=== PATIENT | male | born 1955 | race Caucasian/White ===

== ENCOUNTER 2016-04-14 13:13 | Emergency (ER) | payer OTHER ==
[2016-04-14] MEDS ORDERED: ceFAZolin 1,000 MG in DEXTROSE/WATER 1 50ML.BAG IVPB STA (13:19)
[2016-04-14 13:24] LABS: Glucose,Whole Blood 99 mg/dL (75-99)
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
[2016-04-14 13:47] VITALS: BP 153/117; PULSE 90; RESP 20; TEMP 97.4
[2016-04-14 13:53] LABS: Basophils % (A) 1 %; CH 32.1; CHCM 33.4; Eosinophils # (A) 0.1 k/uL (0-0.7); Eosinophils % (A) 2 %; HCT 44.2 % (39.0-53.0); HDW 2.38; HGB 14.4 gm/dL (13.0-17.5); Luc # (Auto) 0.15; Luc % (Auto) 3; Lymphocytes # (A) 1.3 k/uL (1.0-4.8); Lymphocytes % (A) 24 %; MCH 31.5 pg (25.0-35.0); MCHC 32.7 g/dL (31.0-37.0); MCV 96.4 fL (80.0-100.0); Monocytes # (A) 0.3 k/uL (0-1.0); Monocytes % (A) 6 %; Neutrophils # (A) 3.4 k/uL (1.3-7.7); Neutrophils % (A) 65 %; RBC 4.58 m/uL (4.30-5.90); RDW 12.5 % (11.5-15.5); WBC 5.3 k/uL (3.8-10.6); WBC (Perox) 5.29
[2016-04-14 13:56] LABS: ALT 54 U/L (21-72); AST 30 U/L (17-59); Alcohol <10 mg/dL; Alkaline Phosphatase 70 U/L (38-126); Amylase 39 U/L (30-110); Anion Gap 11 mmol/L; Blood Urea Nitrogen 12 mg/dL (9-20); Calcium 9.4 mg/dL (8.4-10.2); Carbon Dioxide 25 mmol/L (22-30); Chloride 106 mmol/L (98-107); Glucose 102 mg/dL (74-99); Non-African American GFR(MDRD) >60 (>60 ml/min/1.73 sqM); Potassium 4.3 mmol/L (3.5-5.1); Sodium 142 mmol/L (137-145); Total Bilirubin 0.5 mg/dL (0.2-1.3)
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
[2016-04-14 14:06] LABS: Creatine Kinase 164 U/L (55-170); Prothrombin Time 10.1 sec (9.0-12.0)
[2016-04-14 14:10] LABS: Partial Thromboplastin Time 20.7 sec (22.0-30.0)
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
[2016-04-14 14:19] LABS: Creatine Kinase MB 1.8 ng/mL (0.0-2.4); Troponin I <0.012 ng/mL (0.000-0.034)
[2016-04-14] MEDS: HYDROmorphone 1 MG/ML 1 ML SYRINGE IVP STA ×2 (14:50→15:01)
[2016-04-14] MEDS: MORPHINE SULFATE 4 MG/ML SYRINGE IVP STA ×2 (15:12→15:27)
[2016-04-14 15:17] LABS: Appearance,Urine Clear (Clear); Bilirubin,Urine Negative (Negative); Glucose,Urine (UA) Negative (Negative); Ketones,Urine Negative (Negative); Leukocyte Esterase,Urine Negative (Negative); Nitrite,Urine Negative (Negative); PH, Urine 7.5 (5.0-8.0); Protein,Urine Negative (Negative); Specific Gravity,Urine 1.011 (1.001-1.035); UA Billing (MACRO vs. MICRO) CHEM; Urobilinogen,Urine <2.0 mg/dL (<2.0)
[2016-04-14] MEDS ORDERED: LORazepam 2 MG/ML SYRINGE IV STA (15:27)
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
== END 2016-04-14 15:50 | disposition other institution (70) ==
LOC: EC 13:13
DX: S06.0X1A Concussion with loss of consciousness of 30 minutes or less, initial encounter (principal); W38.XXXA Explosion and rupture of other specified pressurized devices, initial encounter; Y93.H3 Activity, building and construction; Y99.0 Civilian activity done for income or pay; S02.2XXA Fracture of nasal bones, initial encounter for closed fracture; S02.411A LeFort I fracture, initial encounter for closed fracture; S02.412A LeFort II fracture, initial encounter for closed fracture; S01.21XA Laceration without foreign body of nose, initial encounter; S01.81XA Laceration without foreign body of other part of head, initial encounter; F17.200 Nicotine dependence, unspecified, uncomplicated; Z79.899 Other long term (current) drug therapy; Z79.82 Long term (current) use of aspirin; I10 Essential (primary) hypertension; F90.9 Attention-deficit hyperactivity disorder, unspecified type
CPT/HCPCS: 36415; 93005; 86900; 86901; 80053; 82150; 82550; 82553; 83690; 84484; 85025; 85610; 85730; 86850; 81003; 80306; 80320; 71010; 72125; 70486; 70450; 96365; 96375 ×3; 99291; J2060; J2270; J1170; J0690

== ENCOUNTER 2019-09-07 17:55 | Emergency (ER) | payer MEDICARE ==
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
--- NOTE | 2019-09-07 19:05 | XR ---
EXAMINATION TYPE: XR ribs RT w pa chest xray DATE OF EXAM: 09/07/2019 COMPARISON: 04/14/2016 HISTORY: Rib pain after a fall TECHNIQUE: 5 views FINDINGS: Heart and mediastinum are normal. Lungs are clear. There is no sign of pleural effusion or pneumothorax. I see no evidence of a rib fracture. Right shoulder appears intact. IMPRESSION: No active cardiopulmonary disease. No rib fracture seen. No adverse change compared to ol d exam.
--- NOTE | 2019-09-07 19:08 | XR ---
EXAMINATION TYPE: XR ankle complete LT DATE OF EXAM: 09/07/2019 COMPARISON: NONE HISTORY: Ankle pain TECHNIQUE: 3 views FINDINGS: Ankle mortise is anatomic. There is plantar calcaneal spurring. I see no fracture nor dislo cation. There are no erosions. Joint spaces are fairly normal. IMPRESSION: Mild calcaneal spurring. No fracture seen.
--- NOTE | 2019-09-07 19:08 | XR ---
EXAMINATION TYPE: XR elbow complete RT DATE OF EXAM: 09/07/2019 COMPARISON: NONE HISTORY: Elbow pain TECHNIQUE: 3 views FINDINGS: I see no fracture nor dislocation. Joint spaces are normal. There is no sign of elbow joint effusion. IMPRESSION: Negative right elbow exam.
[2019-09-07 20:09] VITALS: BP 154/99; PULSE 65; RESP 16; TEMP 97.7
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
== END 2019-09-07 20:24 | disposition home or self-care (01) ==
LOC: EC 17:55
DX: S09.90XA Unspecified injury of head, initial encounter (principal); M25.572 Pain in left ankle and joints of left foot; M25.521 Pain in right elbow; R07.89 Other chest pain; I10 Essential (primary) hypertension; F17.200 Nicotine dependence, unspecified, uncomplicated; F90.9 Attention-deficit hyperactivity disorder, unspecified type; Z79.82 Long term (current) use of aspirin; Z79.899 Other long term (current) drug therapy; X50.1XXA Overexertion from prolonged static or awkward postures, initial encounter
CPT/HCPCS: 70450; 72125; 99284

== ENCOUNTER 2024-10-07 20:59 | Observation (INO) | payer MEDICARE ==
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
[2024-10-07] MEDS: FAMOTIDINE 20 MG/2 ML VIAL IV STA (21:26)
[2024-10-07] MEDS: DEXAMETHASONE SOD PHOSPHATE 10 MG/ML 1 ML VIAL IVP STA (21:28)
[2024-10-07] MEDS: diphenhydrAMINE 50 MG/ML 1 ML VIAL IVP STA (21:30)
[2024-10-07] MEDS: SODIUM CHLORIDE 0.9% 1,000 ML IV SCH (21:31)
[2024-10-07] MEDS: TRANEXAMIC 1,000 MG/100ML-NACL 1,000 MG in SALINE 1 100ML.BAG IVPB ONE (21:58)
[2024-10-07] MEDS ORDERED: NALOXONE 0.4 MG/ML 1 ML VIAL IV PRN (23:00)
[2024-10-07] MEDS ORDERED: diphenhydrAMINE 50 MG/ML 1 ML VIAL IVP PRN (23:04)
[2024-10-07] MEDS: LABETALOL 5 MG/ML VIAL MDV IVP STA (23:25)
[2024-10-07] MEDS: methylPREDNISolone SOD SUCCI 125 MG/2 ML VIAL IV STA (23:26)
[2024-10-07] MEDS: SODIUM CHLORIDE 0.9% 1,000 ML IV ONE (23:28)
[2024-10-07 23:37] LABS: Basophils # (A) 0.02 10*3/uL (0.00-0.10); Basophils % (A) 0.3 %; Eosinophils # (A) 0.09 10*3/uL (0.04-0.35); Eosinophils % (A) 1.5 %; HCT 41.4 % (39.6-50.0); HGB 14.1 g/dL (13.0-17.0); Lymphocytes # (A) 0.75 10*3/uL (0.90-5.00); Lymphocytes % (A) 12.5 %; MCH 32.8 pg (27.0-32.0); MCHC 34.1 g/dL (32.0-37.0); MCV 96.3 fL (80.0-97.0); Monocytes # (A) 0.37 10*3/uL (0.20-1.00); Monocytes % (A) 6.2 %; Neutrophils # (A) 4.74 10*3/uL (1.80-7.70); Neutrophils % (A) 79.0 %; Platelet Count 205 10*3/uL (140-440); RBC 4.30 10*6/uL (4.40-5.60); RDW 13.2 % (11.5-14.5); WBC 6.00 10*3/uL (4.50-10.00)
[2024-10-07 23:51] LABS: ALT 26 U/L (4-49); AST 23 U/L (17-59); African American GFR (CKD) >90 (>60 ml/min/1.73 sqM); Albumin 3.9 g/dL (3.5-5.0); Alkaline Phosphatase 61 U/L (38-126); Anion Gap 8 mmol/L; Blood Urea Nitrogen 26 mg/dL (9-20); Calcium 9.5 mg/dL (8.4-10.2); Carbon Dioxide 25 mmol/L (22-30); Chloride 104 mmol/L (98-107); Glucose 98 mg/dL (74-99); Magnesium 2.1 mg/dL (1.6-2.3); Non-African American GFR(CKD) 90 (>60 ml/min/1.73 sqM); Potassium 4.5 mmol/L (3.5-5.1); Sodium 137 mmol/L (137-145); Total Protein 6.4 g/dL (6.3-8.2)
[2024-10-08] LABS: INR 0.9 (<1.2); Partial Thromboplastin Time 23.4 sec (22.0-30.0); Prothrombin Time 10.1 sec (10.0-12.5)
[2024-10-08] MEDS: DEXAMETHASONE SOD PHOSPHATE 4 MG/ML 1 ML VIAL IVP SCH (00:54)
[2024-10-08 01:19] LABS: Glucose,Whole Blood 115 mg/dL (70-110)
[2024-10-08 03:11] LABS: Basophils # (A) 0.02 10*3/uL (0.00-0.10); Basophils % (A) 0.2 %; Eosinophils # (A) 0.01 10*3/uL (0.04-0.35); Eosinophils % (A) 0.1 %; HCT 43.8 % (39.6-50.0); HGB 14.6 g/dL (13.0-17.0); Lymphocytes # (A) 0.65 10*3/uL (0.90-5.00); Lymphocytes % (A) 7.9 %; MCH 32.2 pg (27.0-32.0); MCHC 33.3 g/dL (32.0-37.0); MCV 96.5 fL (80.0-97.0); Monocytes # (A) 0.11 10*3/uL (0.20-1.00); Monocytes % (A) 1.3 %; Neutrophils # (A) 7.44 10*3/uL (1.80-7.70); Neutrophils % (A) 90.0 %; Platelet Count 231 10*3/uL (140-440); RBC 4.54 10*6/uL (4.40-5.60); RDW 13.1 % (11.5-14.5); WBC 8.27 10*3/uL (4.50-10.00)
[2024-10-08 03:23] LABS: ALT 28 U/L (4-49); AST 24 U/L (17-59); African American GFR (CKD) >90 (>60 ml/min/1.73 sqM); Albumin 3.9 g/dL (3.5-5.0); Alkaline Phosphatase 68 U/L (38-126); Anion Gap 9 mmol/L; Blood Urea Nitrogen 23 mg/dL (9-20); Calcium 9.4 mg/dL (8.4-10.2); Carbon Dioxide 23 mmol/L (22-30); Chloride 105 mmol/L (98-107); Glucose 138 mg/dL (74-99); Magnesium 2.0 mg/dL (1.6-2.3); Non-African American GFR(CKD) >90 (>60 ml/min/1.73 sqM); Potassium 4.5 mmol/L (3.5-5.1); Sodium 137 mmol/L (137-145); Total Protein 6.5 g/dL (6.3-8.2)
[2024-10-08] MEDS: FAMOTIDINE 20 MG/2 ML VIAL IV SCH (08:15)
[2024-10-08 09:36] VITALS: PULSE 78
[2024-10-08] MEDS: predniSONE 20 MG TAB PO SCH (09:58)
[2024-10-08] MEDS: amLODIPine 10 MG TAB PO SCH (09:58)
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
[2024-10-08] MEDS: NON FORMULARY DRUG (Dextroamphetamine/Amphetamine [Adderall] 20 MG Tablet) PO SCH (12:36)
[2024-10-08 14:58] VITALS: BP 148/79; RESP 16; TEMP 98.6
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
[2024-10-08] MEDS ORDERED: ATORVASTATIN 10 MG TAB PO SCH (21:00)
== END 2024-10-08 15:00 | disposition home or self-care (01) ==
LOC: EC 20:59 → 2SICU 23:01 → INTOOBSV 23:01 → 2SICU 23:57 → UNDODISIN 10-08 15:00
PROVIDERS: ADMIT Hospitalist; ATTEND Hospitalist
DX: T78.3XXA Angioneurotic edema, initial encounter (principal); R13.10 Dysphagia, unspecified; I10 Essential (primary) hypertension; E78.5 Hyperlipidemia, unspecified; I45.10 Unspecified right bundle-branch block; H91.90 Unspecified hearing loss, unspecified ear; G47.33 Obstructive sleep apnea (adult) (pediatric); F90.9 Attention-deficit hyperactivity disorder, unspecified type; E66.9 Obesity, unspecified; Z68.33 Body mass index [BMI] 33.0-33.9, adult; F17.210 Nicotine dependence, cigarettes, uncomplicated; Z79.899 Other long term (current) drug therapy; W57.XXXA Bitten or stung by nonvenomous insect and other nonvenomous arthropods, initial encounter; Z91.030 Bee allergy status; Z87.820 Personal history of traumatic brain injury; Z91.014 Allergy to mammalian meats; Z91.011 Allergy to milk products; Z88.8 Allergy status to other drugs, medicaments and biological substances; Z91.199 Patient's noncompliance with other medical treatment and regimen due to unspecified reason
CPT/HCPCS: 96376 ×2; 96361 ×3; 96374; 96375; 99291; 93005; 80053 ×2; 83605; 83735 ×2; 84100 ×2; 84484; 85025 ×2; 85610; 85730; G0378 ×2; J1200; J1100 ×2; J7512; J2919; J1308 ×2; 96365; 96366